=== PATIENT | male | born 1960 | race Caucasian/White ===

== ENCOUNTER → 2017-06-04 | Outpatient (CLI) | payer BC ==
--- NOTE | 2017-06-04 21:52 | US ---
EXAMINATION TYPE: US kidneys/renal and bladder DATE OF EXAM: 06/04/2017 COMPARISON: NONE CLINICAL HISTORY: 56-year-old male N28.1 Cyst of kidney R93.4 Abn Findings on MRI in [facility] er per patient. TECHNIQUE: Multiple sonographic images of the kidneys and bladder are obtained. FINDINGS: Right Kidney: 9.8 x 5.8 x 4.8 cm without hydronephrosis. Suspect some vascular calcifications. Left Kidney: 11.0 x 8.4 x 6.2 cm with mild hydronephrosis and a parapelvic cyst measuring 4.2 cm. Bladder: No gross abnormality. Prostate gland mildly prominent at 4.0 cm wide. Bilateral Jets seen: Yes. Post Void Residual Volume: 54.4 mL, mildly elevated. IMPRESSION: 1. Mild left-sided hydronephrosis. Etiology is unclear. Further clinical correlation recommended. 2. Urinary retention with a post void bladder volume of 54 mL. 3. Mild prostatomegaly.
== END | disposition home or self-care (01) ==
LOC: RADUSWWP 15:29
PROVIDERS: ATTEND Family Medicine
DX: N13.30 Unspecified hydronephrosis (principal); R33.9 Retention of urine, unspecified; N40.0 Benign prostatic hyperplasia without lower urinary tract symptoms
CPT/HCPCS: 76770

== ENCOUNTER → 2019-05-02 | Outpatient (CLI) | payer BC ==
--- NOTE | 2019-05-02 08:35 | US ---
EXAMINATION TYPE: US abdomen complete DATE OF EXAM: 05/02/2019 COMPARISON: Renal ultrasound dated 06/04/2017 CLINICAL HISTORY: R10.30 Lower Abd Pain. Right lower abdomen pain. EXAM MEASUREMENTS: Liver Length: 13.6 cm Gallbladder Wall: 0.2 cm CBD: 0.3 cm Spleen: 9.5 cm Right Kidney: 10.1 x 4.9 x 4.7 cm Left Kidney: 11.1 x 5.5 x 5.5 cm Pancreas: wnl Liver: wnl Gallbladder: wnl Evidence for sonographic Araya's sign: neg CBD: wnl Spleen: wnl Right Kidney: wnl Left Kidney: Medial anechoic area at hilum appearing to represent both mild hydronephrosis and possi ble renal sinus cyst. Upper IVC: wnl Abd Aorta: wnl The liver is homogenous. The intrahepatic portion of the IVC and proximal abdominal aorta are within normal limits. There is no evidence of cholelithiasis. Common bile duct is unremarkable. The visu alized portions of the pancreas are homogenous. The spleen is unremarkable. IMPRESSION: Persistent mild left hydronephrosis is seen on the prior of 06/04/2017 and probable left renal sinus cyst. CT urogram could assess for ureteral obstruction.
== END | disposition home or self-care (01) ==
LOC: RADUSWWP 07:42
PROVIDERS: ATTEND Family Medicine
DX: N13.30 Unspecified hydronephrosis (principal)
CPT/HCPCS: 76700

== ENCOUNTER → 2019-05-08 | Outpatient (CLI) | payer BC ==
--- NOTE | 2019-05-08 13:13 | US ---
EXAMINATION TYPE: US groin LT DATE OF EXAM: 05/08/2019 COMPARISON: NONE CLINICAL HISTORY: [id number] INGUINAL HERNIA,[id number] ENLARGED LYMPH NODES. Lt groin pain. Scanned left groin area of concern. No abnormalities seen. IMPRESSION: No distinct abnormality appreciated.
== END | disposition home or self-care (01) ==
LOC: RADUSWWP 10:45
PROVIDERS: ATTEND Family Medicine
DX: R59.1 Generalized enlarged lymph nodes (principal)

== ENCOUNTER 2019-11-29 18:40 | Emergency (ER) | payer BC ==
[2019-11-29] MEDS ORDERED: ADENOSINE 3 MG/ML 2 ML VIAL IVP STA (18:59)
[2019-11-29] MEDS ORDERED: SODIUM CHLORIDE 0.9% 1,000 ML IV STA (19:03)
[2019-11-29 19:23] LABS: Basophils # (A) 0.1 k/uL (0-0.2); Basophils % (A) 1 %; Eosinophils # (A) 0.1 k/uL (0-0.7); Eosinophils % (A) 1 %; HCT 50.8 % (39.0-53.0); Lymphocytes # (A) 1.9 k/uL (1.0-4.8); Lymphocytes % (A) 15 %; MCH 27.8 pg (25.0-35.0); MCHC 31.6 g/dL (31.0-37.0); MCV 88.2 fL (80.0-100.0); Mean Platelet Volume 8.2; Monocytes # (A) 0.7 k/uL (0-1.0); Monocytes % (A) 6 %; Neutrophils # (A) 9.5 k/uL (1.3-7.7); Neutrophils % (A) 76 %; Platelet Count 236 k/uL (150-450); RBC 5.75 m/uL (4.30-5.90); RDW 13.3 % (11.5-15.5); WBC 12.6 k/uL (3.8-10.6)
--- NOTE | 2019-11-29 19:40 | ED ---
Arrhythmia/Palpitations HPI - General Chief Complaint: Arrhythmia/Palpitations Stated Complaint: High Heart Rate Time Seen by Provider: 11/29/19 18:43 Source: patient, RN notes reviewed Mode of arrival: ambulatory Limitations: no limitations - History of Present Illness Initial Comments: This is a 58-year-old male with a benign past medical history who states he had the onset about 1 hour 15 minutes prior to arrival of palpitations with an elevated heart rate. He has some shortness of breath with it no overt chest pain. No fevers chills nausea vomiting sweats he is ever anything 55 no history of A. fib or SVT there is a family history however A. fib. He is nonsmoker does not drink has about one cup of coffee per day. No new medications no other modifying factors at this time MD Complaint: rapid heart beat, palpitations - Related Data Home Medications Medication Instructions Recorded Confirmed No Known Home Medications 09/08/14 09/08/14 Allergies Allergy/AdvReac Type Severity Reaction Status Date / Time cephalexin monohydrate AdvReac Swelling Verified 11/29/19 18:49 [From Keflex] Review of Systems ROS Statement: Those systems with pertinent positive or pertinent negative responses have been documented in the HPI. ROS Other: All systems not noted in ROS Statement are negative. Past Medical History Past Medical History: No Reported History History of Any Multi-Drug Resistant Organisms: None Reported Past Surgical History: Hernia Repair Past Psychological History: No Psychological Hx Reported Smoking Status: Never smoker Past Alcohol Use History: None Reported Past Drug Use History: None Reported General Exam - General Exam Comments Initial Comments: This is a well-developed well-nourished awake alert oriented 3 male Limitations: no limitations General appearance: alert, anxious Head exam: Present: atraumatic, normocephalic, normal inspection Eye exam: Present: normal appearance, PERRL, EOMI. Absent: scleral icterus, conjunctival injection, periorbital swelling ENT exam: Present: normal exam, mucous membranes moist Neck exam: Present: normal inspection, full ROM, other (No stridor JVD or bruits). Absent: tenderness, meningismus, lymphadenopathy Respiratory exam: Present: normal lung sounds bilaterally. Absent: respiratory distress, wheezes, rales, rhonchi, stridor Cardiovascular Exam: Present: normal rhythm, tachycardia. Absent: systolic murmur, diastolic murmur, rubs, gallop, clicks GI/Abdominal exam: Present: soft, normal bowel sounds. Absent: distended, tenderness, guarding, rebound, rigid Extremities exam: Present: normal inspection, full ROM, normal capillary refill. Absent: tenderness, pedal edema, joint swelling, calf tenderness Back exam: Present: normal inspection Neurological exam: Present: alert, oriented X3, CN II-XII intact Psychiatric exam: Present: normal affect, normal mood Skin exam: Present: warm, dry, intact, normal color. Absent: rash Course Vital Signs 11/29/19 11/29/19 11/29/19 18:46 18:59 19:38 Temperature 98 F 99.2 F Pulse Rate 177 H 114 H 101 H Respiratory 20 18 12 Rate Blood Pressure 102/70 128/116 132/96 O2 Sat by Pulse 96 98 98 Oximetry - Reevaluation(s) Reevaluation #1: 11/29/19 19:40 The patient did receive 6 mg of IV adenosine while was at bedside he did convert to a sinus tachycardia now normal a sinus rhythm Medical Decision Making - Medical Decision Making I did reevaluate patient on multiple occasions he has no further episodes of SVT he is feeling good no shortness breath no chest pain. I did a long discussion with him regarding the findings he will be discharged he will follow-up with his doctor and I did give him a referral to cardiology. - Lab Data Result diagrams: 11/29/19 18:36 11/29/19 18:36 Lab Results 11/29/19 11/29/19 11/29/19 Range/Units 18:36 18:36 18:36 WBC 12.6 H (3.8-10.6) k/uL RBC 5.75 (4.30-5.90) m/uL Hgb 16.0 (13.0-17.5) gm/dL Hct 50.8 (39.0-53.0) % MCV 88.2 (80.0-100.0) fL MCH 27.8 (25.0-35.0) pg MCHC 31.6 (31.0-37.0) g/dL RDW 13.3 (11.5-15.5) % Plt Count 236 (150-450) k/uL Neutrophils % 76 % Lymphocytes % 15 % Monocytes % 6 % Eosinophils % 1 % Basophils % 1 % Neutrophils # 9.5 H (1.3-7.7) k/uL Lymphocytes # 1.9 (1.0-4.8) k/uL Monocytes # 0.7 (0-1.0) k/uL Eosinophils # 0.1 (0-0.7) k/uL Basophils # 0.1 (0-0.2) k/uL PT 9.5 (9.0-12.0) sec INR 0.9 (<1.2) APTT 20.9 L (22.0-30.0) sec D-Dimer 0.40 (<0.60) mg/L FEU Sodium 139 (137-145) mmol/L Potassium 4.8 (3.5-5.1) mmol/L Chloride 103 (98-107) mmol/L Carbon Dioxide 26 (22-30) mmol/L Anion Gap 10 mmol/L BUN 22 H (9-20) mg/dL Creatinine 0.96 (0.66-1.25) mg/dL Est GFR (CKD-EPI)AfAm >90 (>60 ml/min/1.73 sqM) Est GFR (CKD-EPI)NonAf 88 (>60 ml/min/1.73 sqM) Glucose 111 H (74-99) mg/dL Calcium 10.5 H (8.4-10.2) mg/dL Magnesium 2.1 (1.6-2.3) mg/dL Total Bilirubin 0.4 (0.2-1.3) mg/dL AST 38 (17-59) U/L ALT 36 (4-49) U/L Alkaline Phosphatase 73 (38-126) U/L Creatine Kinase 151 (55-170) U/L Troponin I (0.000-0.034) ng/mL Total Protein 7.9 (6.3-8.2) g/dL Albumin 5.0 (3.5-5.0) g/dL TSH 3.510 (0.465-4.680) mIU/L 11/29/19 Range/Units 18:36 WBC (3.8-10.6) k/uL RBC (4.30-5.90) m/uL Hgb (13.0-17.5) gm/dL Hct (39.0-53.0) % MCV (80.0-100.0) fL MCH (25.0-35.0) pg MCHC (31.0-37.0) g/dL RDW (11.5-15.5) % Plt Count (150-450) k/uL Neutrophils % % Lymphocytes % % Monocytes % % Eosinophils % % Basophils % % Neutrophils # (1.3-7.7) k/uL Lymphocytes # (1.0-4.8) k/uL Monocytes # (0-1.0) k/uL Eosinophils # (0-0.7) k/uL Basophils # (0-0.2) k/uL PT (9.0-12.0) sec INR (<1.2) APTT (22.0-30.0) sec D-Dimer (<0.60) mg/L FEU Sodium (137-145) mmol/L Potassium (3.5-5.1) mmol/L Chloride (98-107) mmol/L Carbon Dioxide (22-30) mmol/L Anion Gap mmol/L BUN (9-20) mg/dL Creatinine (0.66-1.25) mg/dL Est GFR (CKD-EPI)AfAm (>60 ml/min/1.73 sqM) Est GFR (CKD-EPI)NonAf (>60 ml/min/1.73 sqM) Glucose (74-99) mg/dL Calcium (8.4-10.2) mg/dL Magnesium (1.6-2.3) mg/dL Total Bilirubin (0.2-1.3) mg/dL AST (17-59) U/L ALT (4-49) U/L Alkaline Phosphatase (38-126) U/L Creatine Kinase (55-170) U/L Troponin I <0.012 (0.000-0.034) ng/mL Total Protein (6.3-8.2) g/dL Albumin (3.5-5.0) g/dL TSH (0.465-4.680) mIU/L - Radiology Data Radiology results: report reviewed (I did review the imaging and report no acute findings.), image reviewed Disposition Clinical Impression: Supraventricular tachycardia Disposition: HOME SELF-CARE Condition: Good Instructions (If sedation given, give patient instructions): Supraventricular Tachycardia (ED) Is patient prescribed a controlled substance at d/c from ED?: No Referrals: McPhilimy,Tobias, DO [Primary Care Provider] - 1-2 days Chay Ng MD [STAFF PHYSICIAN] - 1-2 days
--- NOTE | 2019-11-29 19:42 | XR ---
EXAMINATION TYPE: XR chest 2V DATE OF EXAM: 11/29/2019 COMPARISON: 09/08/2014 HISTORY: Dysrhythmia. TECHNIQUE: FINDINGS: Heart and mediastinum are normal. Lungs are clear. Diaphragm is normal. Bony thorax appears normal. IMPRESSION: Normal chest. No change.
[2019-11-29 19:44] LABS: D-Dimer 0.4 mg/L FEU (<0.60); INR 0.9 (<1.2); Partial Thromboplastin Time 20.9 sec (22.0-30.0); Prothrombin Time 9.5 sec (9.0-12.0)
[2019-11-29 19:46] LABS: ALT 36 U/L (4-49); AST 38 U/L (17-59); African American GFR (CKD) >90 (>60 ml/min/1.73 sqM); Alkaline Phosphatase 73 U/L (38-126); Anion Gap 10 mmol/L; Blood Urea Nitrogen 22 mg/dL (9-20); Calcium 10.5 mg/dL (8.4-10.2); Carbon Dioxide 26 mmol/L (22-30); Chloride 103 mmol/L (98-107); Creatine Kinase 151 U/L (55-170); Glucose 111 mg/dL (74-99); Magnesium 2.1 mg/dL (1.6-2.3); Non-African American GFR(CKD) 88 (>60 ml/min/1.73 sqM); Sodium 139 mmol/L (137-145); Total Bilirubin 0.4 mg/dL (0.2-1.3); Total Protein 7.9 g/dL (6.3-8.2)
[2019-11-29 20:09] LABS: Potassium 4.8 mmol/L (3.5-5.1)
[2019-11-29 22:51] VITALS: BP 129/95; PULSE 93; RESP 16; TEMP 98.1
== END 2019-11-29 21:45 | disposition home or self-care (01) ==
LOC: EC 18:40
DX: I47.1 Supraventricular tachycardia (principal); Z88.1 Allergy status to other antibiotic agents
CPT/HCPCS: 99285; 96374; 96361 ×2; 36415; 85379; 80053; 82550; 83735; 84443; 84484; 85025; 85610; 85730; 71046; J0153